=== PATIENT | male | born 1985 | race Caucasian/White ===

== ENCOUNTER 2016-12-09 15:23 | Emergency (ER) | payer SELFPAY ==
[~2016-12-09] VITALS: Ht 160 cm; Wt 119.0 kg
[~2016-12-09 15:23] MED LIST: HYD25 PO
[2016-12-09 15:25] VITALS: Ht 160 cm; Wt 119.0 kg
[2016-12-09] MEDS ORDERED: LORA1TAB PO (15:42)
--- NOTE | 2016-12-09 15:52 | ERD ---
ER Documentation Chief Complaint Date/Time DATE: 12/09/16 TIME: 15:48 Chief Complaint ANXIETY HPI Patient is a 31-year-old male who states he has had intermittent episodes of anxiety. This is been going on for over one year. He states it all started a year ago when his younger brother unexpectedly. He states and there he has had depression and he has gained over 100 pounds. He denies any suicidal or homicidal ideations. He states he has not tried any medications for anxiety. He states sometimes he wakes up at night feeling short of breath. He denies any chest pain or shortness of breath at this time. He is no cardiac past medical history. ROS All systems reviewed and are negative except as per history of present illness. Medications Home Meds Active Scripts Lorazepam* (Lorazepam*) 1 Mg Tablet, 1 MG PO Q8H Y for ANXIETY, #15 TAB Prov:SADIA LUNDY PA-C 12/09/16 Reported Medications Hydrochlorothiazide* (Hydrochlorothiazide*) 25 Mg Tab, 25 MG PO BID, TAB 07/27/14 Allergies Allergies: Coded Allergies: dexamethasone (Verified Allergy, Unknown, HIVES, 09/02/14) PMhx/Soc History of Surgery: No Anesthesia Reaction: No Hx Neurological Disorder: No Hx Respiratory Disorders: Yes (ASTHMA) Hx Cardiac Disorders: Yes (HTN) Hx Psychiatric Problems: No Hx Miscellaneous Medical Probl: No Hx Alcohol Use: No Hx Substance Use: No Hx Tobacco Use: No FmHx Family History: No diabetes Physical Exam Vitals Vital Signs Date Time Temp Pulse Resp B/P Pulse Ox O2 Delivery O2 Flow Rate FiO2 12/09/16 15:25 98.8 90 18 158/68 99 Physical Exam General: well developed, well nourished, alert, nontoxic, no distress Head: normocephalic, atraumatic Neck: Supple, nontender, no lymphadenopathy, no midline tenderness Oropharynx: no tonsilar erythema or edema, uvula midline, no exudates, no kissing tonsils, no drooling Respiratory: Clear to auscaultation bilaterally, speaks in full sentences, no use of accesory muscles or labored breathing, no rales, ronchi, or wheezing Cardiovascular: RRR, No murmurs GI: soft, non tender, non distended, negative murphys sign, negative mcburneys point tenderness, no cva tenderness bilaterally, no rebound or guarding Back: no midline tenderness, no step offs or bony abnormalities, sensation to light touch in tact Extremities: moving all extremities normally, normal gait, no edema Procedures/MDM Patient is a 31-year-old male who presents with anxiety. He has not tried any medications for anxiety. I doubt that there is any cardiac etiology to his symptoms. His vital signs are normal other than elevated blood pressure in the 150s systolic. There is no evidence of hypertensive urgency or emergency. Patient is not suicidal or homicidal. I reviewed online [employer] database and there was no evidence of narcotic abuse or dependency and it was completely clean. Therefore I did give the patient a small amount of Ativan. I explained to him that this was only to be used as a rescue medication he should not take it daily only if he is having an acute panic attack and he should follow-up with primary care to get further refills and other treatment options. He was given a list of low-cost clinics in the area. Recommended this patient follow up with her primary care doctor within 48 hours or return to the emergency room for any worsening of symptoms. However this time I do believe there is suitable for outpatient management. I answered all their questions and they agreed with the plan and were discharged home. Departure Diagnosis: Primary Impression: Anxiety Condition: Stable Patient Instructions: Anxiety Reaction Referrals: [facility] YOU HAVE RECEIVED A MEDICAL SCREENING EXAM AND THE RESULTS INDICATE THAT YOU DO NOT HAVE A CONDITION THAT REQUIRES URGENT TREATMENT IN THE EMERGENCY DEPARTMENT. FURTHER EVALUATION AND TREATMENT OF YOUR CONDITION CAN WAIT UNTIL YOU ARE SEEN IN YOUR DOCTORS OFFICE WITHIN THE NEXT 1-2 DAYS. IT IS YOUR RESPONSIBILITY TO MAKE AN APPOINTMENT FOR FOLOW-UP CARE. IF YOU HAVE A PRIMARY DOCTOR --you should call your primary doctor and schedule an appointment IF YOU DO NOT HAVE A PRIMARY DOCTOR YOU CAN CALL OUR PHYSICIAN REFERRAL HOTLINE AT IF YOU CAN NOT AFFORD TO SEE A PHYSICIAN YOU CAN CHOSE FROM THE FOLLOWING [facility] [id number] [facility] [address] [facility] [facility] [address] [facility] [address] [facility]. [facility] [address] [facility] [facility] [address] Additional Instructions: Call your primary care doctor TOMORROW for an appointment during the next 1-2 days.See the doctor sooner or return here if your condition worsens before your appointment time. SADIA LUNDY PA-C Dec 09, 2016 15:52
== END 2016-12-09 15:48 | disposition home or self-care (01) ==
LOC: E/R 15:23
DX: F41.9 Anxiety disorder, unspecified (principal); I10 Essential (primary) hypertension; J45.909 Unspecified asthma, uncomplicated
CPT/HCPCS: 99283

== ENCOUNTER 2018-05-16 11:50 | Emergency (ER) | END 2018-05-16 14:38 | disposition home or self-care (01) ==